=== PATIENT | female | born 1990 | race African-American/Black ===

== ENCOUNTER 2016-07-22 22:05 | Emergency (ER) | payer MEDICAID | END 2016-07-23 00:35 | disposition home or self-care (01) | LOC: D.ER 22:05 | DX: J02.9 Acute pharyngitis, unspecified (principal); E87.6 Hypokalemia; D61.818 Other pancytopenia ==

== ENCOUNTER → 2017-09-19 12:19 | Outpatient (CLI) | payer MEDICAID ==
[~2017-09-19 12:19] MED LIST: ZANTAC150 MG PO
[2017-09-19 16:02] LABS: APPEARANCE CLEAR (CLEAR); BILIRUBIN NEGATIVE (NEGATIVE); COLOR YELLOW (YELLOW); GLUCOSE NEGATIVE (NEGATIVE); KETONE SMALL mg/dL (NEGATIVE); NITRITE NEGATIVE (NEGATIVE); PROTEIN NEGATIVE (NEGATIVE); SPECIFIC GRAVITY 1.005 (1.005-1.020); UROBILINOGEN NORMAL (NORMAL)
[2017-11-20 03:08] VITALS: BMI 25.1
== END | disposition home or self-care (01) ==
LOC: D.LDO 12:19
PROVIDERS: Obstetrics & Gynecology
DX: O26.893 Other specified pregnancy related conditions, third trimester (principal); Z3A.28 28 weeks gestation of pregnancy; O30.003 Twin pregnancy, unspecified number of placenta and unspecified number of amniotic sacs, third trimester

== ENCOUNTER → 2017-10-10 16:25 | Outpatient (CLI) | payer MEDICAID ==
[2017-11-20 03:08] VITALS: BMI 25.1
== END | disposition home or self-care (01) ==
LOC: D.LDO 16:25
DX: O26.899 Other specified pregnancy related conditions, unspecified trimester (principal); Z3A.00 Weeks of gestation of pregnancy not specified

== ENCOUNTER → 2017-11-18 14:38 | Outpatient (CLI) | payer MEDICAID ==
[2017-11-20 03:08] VITALS: BMI 25.1
== END | disposition home or self-care (01) ==
LOC: D.LDO 14:38
DX: O26.893 Other specified pregnancy related conditions, third trimester (principal); Z3A.35 35 weeks gestation of pregnancy; O30.003 Twin pregnancy, unspecified number of placenta and unspecified number of amniotic sacs, third trimester; Z3A.36 36 weeks gestation of pregnancy

== ENCOUNTER 2017-11-20 01:07 | Inpatient (IN) | payer MEDICAID ==
[~2017-11-20] VITALS: Ht 170.2 cm; Wt 72.6 kg
--- NOTE | ~2017-11-20 | DS ---
PATIENT:RALPH FLORES :89 MEDICAL RECORD: [id number] DISCHARGE SUMMARY ADMISSION DATE: 11/20/17 DISCHARGE DATE: 11/23/17 DATE OF ADMISSION: 11/20/2017. DATE OF DISCHARGE: 11/23/2017. ADMISSION DIAGNOSIS: Twins in active labor. DISCHARGE DIAGNOSIS: Mother delivered with twins. PROCEDURE PERFORMED: 1. Spontaneous vaginal delivery of twin A. 2. Urgent section of twin B. ATTENDING PHYSICIAN: Tobias Pinto MD HISTORY OF PRESENT ILLNESS AND INDICATION FOR DELIVERY: See the H&P and operative note. SUMMARY OF HOSPITALIZATION: The patient did well . By day #3, she was tolerating a regular diet and voiding without difficulty. At the time of discharge, the incision was clean, dry and intact. The uterus was firm. The patient will room in as the infants are having issues with thermoregulation. DISCHARGE MEDICATIONS: Will include Percocet and Motrin. Standard postoperative and precautions have been reviewed and she will follow up in the clinic in 2 weeks. TRANSINT:[id number] Voice Confirmation ID: [id number] DOCUMENT ID: [id number] TOBIAS PINTO MD at 1803 CC: [id number] DICTATION DATE: 11/23/17 09 CHAIR PAD MAKER: 11/23/17 1209 DIS IN 11/23/17 [id number] [place] [address]
--- NOTE | ~2017-11-20 | OP ---
PATIENT NAME: RALPH FLORES MEDICAL RECORD: [id number] :89 LOCATION:[facility] ADMISSION DATE:11/20/17 SURGEON: KT PINTO MD DATE OF OPERATION: 11/20/2017 PREOPERATIVE DIAGNOSES: 1. Twins. 2. Active labor at 36 weeks' gestation. 3. Anemia. POSTOPERATIVE DIAGNOSES: 1. Twins. 2. Active labor at 36 weeks' gestation. 3. Malpresentation of twin B. 4. Nonreassuring monitoring. 5. Anemia. PROCEDURE: 1. Vaginal delivery of twin A. 2. delivery of twin B. ATTENDING SURGEON: Kt Pinto MD INSTRUMENT AND ELECTRICAL TECHNICIAN: Re Hernandez ANESTHESIOLOGIST: Dr. Matamoros ANESTHETIC: Continuous lumbar epidural with general anesthetic and endotracheal intubation. FINDINGS: Twin A male infant, vertex presentation, Apgars 9 and 9, weight 4 pounds 9 ounces. Twin B delivered via section, Apgars 8 and 9, weight 4 pounds 7 ounces. What was visualized of the abdominal anatomy was unremarkable. SPECIMEN REMOVED: Placenta. SPECIMEN DISPOSITION: Pathology. ESTIMATED BLOOD LOSS: 800 cc. FLUIDS: 1500 cc lactated Ringer's and completion of a second unit of packed red blood cells. URINE OUTPUT: 20 cc. DRAINS: Parham to gravity. COMPLICATIONS: None. INDICATIONS: The patient is a 27-year-old female with twin gestation, who presents in active labor. The patient progressed to complete dilation and was moved to the operative suite. Both twins were noted to be vertex on ultrasound. Twin A was delivered without incident. Upon delivery of twin A, ultrasound shows change in position of twin B. The attending physician was able to palpate OPERATIVE REPORT [id number] RALPH FLORES the lower extremities and the in a transverse presentation. Monitoring shows a heart rate of approximately 70. The patient immediately undergoes rapid sequence induction and delivery of twin B by . DESCRIPTION OF PROCEDURE: After vaginal of twin A, the twin B was noted to be in the transverse presentation and with ultrasound of diminished heart rate. The patient was immediately positioned for the section, rapidly prepped and undergoes rapid sequence induction for anesthetic. After cleared by anesthesia, a low transverse incision was made on the abdomen and the uterus was reached through a Pelosi technique. The bladder blade was inserted. Low transverse hysterotomy was performed and the was delivered onto the abdomen atraumatically. Infant passed to the attendant and the placenta delivered via Crede maneuver. Uterus was exteriorized, cleared of all clot and debris. The uterus was closed in a running locked fashion with chromic stitch. The pelvis was irrigated and the uterus returned. The rectus belly was inspected and reapproximated in the midline with a loose chromic stitch. Fascia was closed with Vicryl. Subcutaneous tissue was irrigated. Bleeding vessels cauterized and the skin reapproximated with cindi. The sponge count was correct. An x-ray was performed immediately after showing no retained instruments or sponges. The patient is sent to the recovery area in stable condition. TRANSINT:[id number] Voice Confirmation ID: [id number] DOCUMENT ID: [id number] KT PINTO MD at 0918 CC: [id number] DICTATION DATE: 11/20/17 1228 PROFESSOR OF EARLY CHILDHOOD EDUCATION: 11/20/17 1246 ADM IN [id number] [place] [address]
[2017-11-20 01:58] LABS: APPEARANCE CLEAR (CLEAR); BILIRUBIN NEGATIVE (NEGATIVE); COLOR YELLOW (YELLOW); GLUCOSE NEGATIVE (NEGATIVE); KETONE NEGATIVE (NEGATIVE); NITRITE NEGATIVE (NEGATIVE); PROTEIN NEGATIVE (NEGATIVE); UROBILINOGEN NORMAL (NORMAL)
[2017-11-20 02:00] LABS: BACTERIA MODERATE /hpf (NONE SEEN); EPITHELIAL CELLS 0-5 /hpf (0-5); MUCUS <1+ /lpf (NONE SEEN); RED CELLS - URINE 0-5 /hpf (0-5); WHITE CELLS - URINE 0-5 /hpf (0-5); YEAST <1+ /hpf (NONE SEEN)
[2017-11-20 02:58] LABS: HEMATOCRIT 26.8 % (36.0-48.0); HEMOGLOBIN 8.3 g/dL (12-16); MCH 23.8 pg (26.0-34.0); MCV 76.8 fL (80.0-100.0); MEAN PLATELET VOLUME 10.3 fL (7.4-10.4); RBC 3.49 10x6/uL (4.00-5.40); RDW 15.9 % (11.5-14.5); WBC 8.7 10x3/uL (4.8-10.8)
[2017-11-20 03:08] VITALS: BP 133/69; Ht 170.2 cm; Wt 72.6 kg
[2017-11-20 03:50] LABS: UDS - AMPHET NEGATIVE QUAL (NEGATIVE); UDS - BARB NEGATIVE QUAL (NEGATIVE); UDS - BENZO NEGATIVE QUAL (NEGATIVE); UDS - COCAINE NEGATIVE QUAL (NEGATIVE); UDS - OPIATE NEGATIVE QUAL (NEGATIVE); UDS - PCP NEGATIVE QUAL (NEGATIVE); UDS - THC POSITIVE QUAL (NEGATIVE)
[2017-11-20 12:51] VITALS: BP 126/78
[2017-11-20 19:34] VITALS: BP 126/68
[2017-11-21 00:47] VITALS: BP 119/67
[2017-11-21 04:12] VITALS: BP 119/66
[2017-11-21] MEDS ORDERED: ZANTAC150 MG PO (04:26)
[2017-11-21 06:11] LABS: BASOPHILS 0.1 % (0-2); EOSINOPHILS 0.5 % (0-7); HEMATOCRIT 28.7 % (36.0-48.0); HEMOGLOBIN 9.5 g/dL (12-16); IMMATURE GRANULOCYTES 0.4 % (0-5); LYMPHOCYTES 7.9 % (15-50); MCH 26.2 pg (26.0-34.0); MCHC 33.1 g/dL (31.0-37.0); MEAN PLATELET VOLUME 10.6 fL (7.4-10.4); MONOCYTES 5.8 % (2-11); NEUTROPHILS 85.3 % (40-80); RBC 3.62 10x6/uL (4.00-5.40); RDW 15.4 % (11.5-14.5)
[2017-11-21 06:31] LABS: MCV 79.3 fL (80.0-100.0); PLATELET COUNT 109 10x3/uL (130-400); WBC 16.5 10x3/uL (4.8-10.8)
[2017-11-21 08:21] VITALS: BP 123/63
[2017-11-21 08:21] LABS: RAPID PLASMA REAGIN Non Reactive (Non Reactive)
[2017-11-21 16:18] VITALS: BP 119/68
[2017-11-21 19:45] VITALS: BP 127/75
[2017-11-21 23:55] VITALS: BP 114/66
[2017-11-22 03:00] VITALS: BP 127/64
[2017-11-22 07:41] VITALS: BP 127/69
[2017-11-22 11:55] VITALS: BP 126/76
[2017-11-22 19:25] VITALS: BP 131/80
[2017-11-23 00:40] VITALS: BP 128/70
[2017-11-23 07:45] VITALS: BP 124/71
[2017-11-25 11:11] LABS: UDSC - AMPHET Negative ng/mL (Cutoff=1000); UDSC - BARB Negative ng/mL (Cutoff=300); UDSC - BENZO Negative ng/mL (Cutoff=300); UDSC - COC Negative ng/mL (Cutoff=300); UDSC - METH Negative ng/mL (Cutoff=300); UDSC - OPIATES Negative ng/mL (Cutoff=300); UDSC - PCP Negative ng/mL (Cutoff=25); UDSC - PROPOXY Negative ng/mL (Cutoff=300); UDSC - THC Positive (Cutoff=50)
== END 2017-11-23 11:45 | disposition home or self-care (01) | DRG 765 ==
LOC: D.LDO 01:07 → D.LD 02:15 → D.WS 02:15 → D.LD 03:08 → D.WS 12:56
PROVIDERS: Obstetrics & Gynecology
PROC: 10D00Z1 Extraction of Products of Conception, Low, Open Approach (ICD-10-PCS; 2017-11-20)
PROC: 10E0XZZ Delivery of Products of Conception, External Approach (ICD-10-PCS; principal; 2017-11-20 10:40)
DX: O99.824 Streptococcus B carrier state complicating childbirth (principal); O30.003 Twin pregnancy, unspecified number of placenta and unspecified number of amniotic sacs, third trimester; Z37.2 Twins, both liveborn; Z3A.36 36 weeks gestation of pregnancy; O99.02 Anemia complicating childbirth; O32.8XX2 Maternal care for other malpresentation of fetus, fetus 2

== ENCOUNTER 2018-04-07 07:50 | Day surgery (SDC) | payer MEDICAID ==
[2018-04-04 11:47] LABS: HEMATOCRIT 34.8 % (36.0-48.0); HEMOGLOBIN 11.6 g/dL (12-16); LYMPHOCYTES 42.8 % (15-50); MCH 29.1 pg (26.0-34.0); MCHC 33.3 g/dL (31.0-37.0); MCV 87.4 fL (80.0-100.0); MEAN PLATELET VOLUME 9.5 fL (7.4-10.4); RBC 3.98 10x6/uL (4.00-5.40); RDW 13.9 % (11.5-14.5); WBC 4.3 10x3/uL (4.8-10.8)
[2018-04-04 11:59] LABS: PLATELET COUNT 196 10x3/uL (130-400)
[~2018-04-07] VITALS: Ht 170.2 cm; Wt 62.6 kg
--- NOTE | ~2018-04-07 | OP ---
PATIENT NAME: RALPH FLORES MEDICAL RECORD: [id number] :89 LOCATION:D[facility] ADMISSION DATE: SURGEON: KT PINTO MD DATE OF OPERATION: 04/07/2018 PREOPERATIVE DIAGNOSIS: Undesired fertility. POSTOPERATIVE DIAGNOSIS: Undesired fertility. PROCEDURE PERFORMED: Laparoscopic bilateral tubal occlusion using Falope ring. SURGEON: Kt Pinto MD ANESTHESIOLOGIST: Saroj Hernandez ANESTHESIOLOGIST: Dr. Matamoros. ANESTHESIA: General. FINDINGS: Uterus and tubes unremarkable. Ovaries unremarkable. What was visualized of the abdominal anatomy is also unremarkable. SPECIMENS REMOVED: None applicable. PATHOLOGY: None applicable. ESTIMATED BLOOD LOSS: Minimal. FLUIDS: 1100 cc lactated Ringer's. URINE OUTPUT: Quantity sufficient void prior to the procedure. COMPLICATIONS: None. DRAINS: None. INDICATIONS: The patient is a 27-year-old multiparous female with undesired fertility. The patient has been counseled and understands there are alternatives to tubal ligation. The patient also understands there is increased risk of an ectopic gestation, which can be a life-threatening condition if not treated properly. The patient understood all risks and benefits and wishes to proceed. DESCRIPTION OF PROCEDURE: After informed consent was assured, the patient was taken to the operating room where anesthetic was obtained. With the patient supine on the table, incisions made at the umbilicus to accommodate a 5-mm bladeless trocar. With the patient now in Trendelenburg position, an accessory port was placed 2 fingerbreadths above the symphysis in the old scar. The trocar was inserted here and a blunt probe used to sweep the bowel free of the pelvis. Using a Falope ring applicator, the right tube was followed to its fimbriated end and then a segment of the isthmic portion of the tube selected and the Falope ring applied. There was good blanching and crease formation. This was repeated on the contralateral side. Again, the left tube was followed to the end and a segment of the isthmic portion of the tube has a Falope ring applied. Again, there was good blanching with crease formation. Chung was OPERATIVE REPORT [id number] RALPH FLORES placed directly over both right and left tubal occlusion segments and the accessory port was removed. Pneumoperitoneum was released and then the trocar removed. All sites were closed with a subcuticular stitch and Dermabond applied. Sponge, lap, and needle count correct times 2. TRANSINT:[id number] Voice Confirmation ID: [id number] DOCUMENT ID: [id number] KT PINTO MD at 1248 CC: [id number] DICTATION DATE: 04/07/18 1033 SURGICAL SERVICES TECH: 04/07/18 1109 [facility] [place] 04/07/18 [id number] [place] [address]
[2018-04-07 08:09] VITALS: BP 131/59; Ht 170.2 cm; Wt 62.6 kg
[2018-04-07 08:30] LABS: HCG URINE NEGATIVE (NEGATIVE)
== END 2018-04-07 14:18 | disposition home or self-care (01) ==
LOC: D.OPS 07:50 → D.PAN 09:45 → D.OPS 14:18
PROVIDERS: Obstetrics & Gynecology
DX: Z30.2 Encounter for sterilization (principal); Z01.812 Encounter for preprocedural laboratory examination